=== PATIENT | female | born 1950 | race Caucasian/White ===

== ENCOUNTER → 2016-12-11 | Outpatient (CLI) | payer OTHER | LOC: BMCIMAGING 11:21 | PROVIDERS: ATTEND Internal Medicine | DX: Z13.820 Encounter for screening for osteoporosis (principal); M85.80 Other specified disorders of bone density and structure, unspecified site ==

== ENCOUNTER 2018-05-06 01:30 | Observation (INO) | payer OTHER ==
[2018-05-06] MEDS ORDERED: NS 1,000 ML IV ONE (01:42)
--- NOTE | 2018-05-06 01:42 | EDPHY ---
H & P Stated Complaint: left flank pain Time Seen by Provider: 05/06/18 01:42 HPI/ROS: HPI CHIEF COMPLAINT: Left-sided flank pain. HISTORY OF PRESENT ILLNESS: This is a 67-year-old female, presents emergency room with sudden onset approximately an hour ago left-sided flank pain. Sharp stabbing. Rates pain 6/10 currently. She has associated nausea and vomiting with this. No fever. Pain is rather severe this is what brought her to the emergency room. She denies any chest pain or shortness of breath. Complains of left flank pain. She does report that she had blood in her urine recently and is currently being worked up for this she is due to have an ultrasound this week. Past Medical History: History of uterine cancer, neck cancer, thyroid disease Past Surgical History: Neck surgery, hysterectomy Social History: Denies drugs alcohol tobacco. Family History: Noncontributory ROS REVIEW OF SYSTEMS: 10 Systems were reviewed and negative with the exception of the elements mentioned in the history of present illness. Exam Constitutional nontoxic,, triage nursing summary reviewed, vital signs reviewed , awake/alert. Eyes normal conjunctivae and sclera, EOMI, PERRLA. HENT normal inspection, atraumatic, moist mucus membranes, no epistaxis, neck supple/ no meningismus, no raccoon eyes. Respiratory clear to auscultation bilaterally, normal breath sounds, no respiratory distress, no wheezing. Cardiovascular rate normal, regular rhythm, no murmur, no edema, distal pulses normal. Gastrointestinal soft, non-tender, no rebound, no guarding, normal bowel sounds, no distension, no pulsatile mass. Genitourinary mild tender palpation left CVA. Musculoskeletal no midline vertebral tenderness, full range of motion, no calf swelling, no tenderness of extremities, no meningismus, good pulses, neurovascularly intact. Skin pink, warm, & dry, no rash, skin atraumatic. Neurologic awake, alert and oriented x 3, AAOx3, moves all 4 extremities equally, motor intact, sensory intact, CN II-XII intact, normal cerebellar, normal vision, normal speech. Psychiatric normal mood/affect. Heme/Lymph/Immune no lymphadenopathy. Differential diagnosis includes but is not limited to and in no particular order : Bowel obstruction, appendicitis, gallbladder disease, diverticulitis, colitis , enteritis, perforated viscus, gastritis, GERD, esophagitis, urinary tract infection, pyelonephritis, kidney stones Medical Decision Making: Plan for this patient IV establishment IV fluid bolus IV Zofran 4 mg for nausea, IV Dilaudid 0.5 mg for pain control check UA, basic blood work, CT scan abdomen pelvis without contrast for flank pain. Re-evaluation: CT scan abdomen pelvis without contrast for flank pain shows a large left-sided UPJ stone 8 x 7 x 10. Called to me by Dr. Mead. Patient re-evaluated 2:44 a.m.. Still has ongoing left flank pain. Nausea. Patient very large stone causing obstructive uropathy. Plan for admission for pain control. Observation. Source: Patient - Personal History Current Tetanus/Diphtheria Vaccine: Yes Current Tetanus Diphtheria and Acellular Pertussis (TDAP): Yes Tetanus Vaccine Date: last 10 years - Medical/Surgical History Hx Asthma: No Hx Chronic Respiratory Disease: No Hx Diabetes: No Hx Cardiac Disease: No Hx Renal Disease: No Hx Cirrhosis: No Hx Alcoholism: No Hx HIV/AIDS: No Hx Splenectomy or Spleen Trauma: No Other PMH: kidney stones - Social History Smoking Status: Never smoked Constitutional: Initial Vital Signs Temperature (C) 36.4 C 05/06/18 01:37 Heart Rate 79 05/06/18 01:37 Respiratory Rate 18 05/06/18 01:37 Blood Pressure 136/79 H 05/06/18 01:37 O2 Sat (%) 98 05/06/18 01:37 O2 Delivery Mode Room Air Allergies/Adverse Reactions: No Known Allergies Allergy (Unverified 03/01/11 12:32) Home Medications: Medication Instructions Recorded Levothyroxine [Synthroid 25 mcg 25 mcg PO DAILY06 05/06/18 (*)] Meth/Meblue/Sod Phos/Psal/Hyos 1 each PO QID #20 capsule 05/07/18 [Uribel Capsule] traMADol [Ultram 50 mg (*)] 50 mg PO Q4 #10 tab 05/07/18 Medical Decision Making - Data Points Laboratory Results: Laboratory Results 05/06/18 01:44 05/06/18 01:44 Medications Given: Discontinued Medications Acetaminophen (Tylenol) 650 mg PO Q4HRS PRN PRN Reason: Pain, Mild/Fever, Can Take PO Stop: 11/02/18 02:46 Last Admin: 05/06/18 10:22 Dose: 650 mg Amoxicillin (Amoxicillin) 500 mg PO Q8HRS SAMUEL PRN Reason: Protocol Stop: 06/05/18 13:59 Last Admin: 05/07/18 13:13 Dose: 500 mg Hydromorphone HCl (Dilaudid) 0.5 mg IVP EDNOW ONE Stop: 05/06/18 01:49 Last Admin: 05/06/18 01:54 Dose: 0.5 mg Hydromorphone HCl (Dilaudid) 0.2 - 0.4 mg IVP Q4HRS PRN PRN Reason: Pain, Severe Unable to Take PO Stop: 05/16/18 02:46 Last Admin: 05/06/18 22:22 Dose: 0.3 mg Sodium Chloride (Ns) 1,000 mls @ 0 mls/hr IV EDNOW ONE; Wide Open PRN Reason: Protocol Stop: 05/06/18 01:43 Last Admin: 05/06/18 01:46 Dose: 1,000 mls Sodium Chloride (Ns) 1,000 mls @ 150 mls/hr IV CONT SAMUEL Stop: 11/02/18 02:59 Last Admin: 05/07/18 06:02 Dose: 1,000 mls Levofloxacin/Dextrose (Levaquin 500 Mg (Premix)) 100 mls @ 100 mls/hr IV ONCALL ONE PRN Reason: Protocol Stop: 05/07/18 08:14 Last Admin: 05/07/18 07:30 Dose: 100 mls Lactated Ringer's (Lr) 1,000 mls @ 0 mls/hr IV ONCE ONE PRN Reason: Per Protocol Stop: 05/07/18 06:30 Last Admin: 05/07/18 06:48 Dose: 1,000 mls Iopamidol (Isovue-M 300) Confirm Administered Dose 30 ml .ROUTE .STK-MED ONE Stop: 05/07/18 07:02 Last Admin: 05/07/18 07:30 Dose: 30 ml Iopamidol (Isovue-M 300) Confirm Administered Dose 15 ml .ROUTE .STK-MED ONE Stop: 05/07/18 08:09 Last Admin: 05/07/18 08:19 Dose: 15 ml Ketorolac Tromethamine (Toradol) 15 mg IVP Q6HRS [facility] Stop: 05/11/18 05:59 Last Admin: 05/07/18 12:02 Dose: 15 mg Levothyroxine Sodium (Synthroid) 25 mcg PO DAILY06 [facility] Stop: 11/02/18 12:44 Last Admin: 05/07/18 06:00 Dose: 25 mcg Lidocaine (Uroject Lidocaine 2% Jelly) Confirm Administered Dose 20 ml .ROUTE .STK-MED ONE Stop: 05/07/18 07:01 Last Admin: 05/07/18 08:44 Dose: 0.1 ml Lidocaine (Uroject Lidocaine 2% Jelly) Confirm Administered Dose 20 ml .ROUTE .STK-MED [facility] Stop: 05/07/18 08:43 Last Admin: 05/07/18 08:45 Dose: 20 ml Ondansetron HCl (Zofran) 4 mg IVP EDNOW ONE Stop: 05/06/18 01:49 Last Admin: 05/06/18 01:54 Dose: 4 mg Ondansetron HCl (Zofran) 4 mg IVP Q4HRS PRN PRN Reason: Nausea/Vomiting, Can't Take PO Stop: 11/02/18 02:46 Last Admin: 05/07/18 12:10 Dose: 4 mg Phenazopyridine HCl (Pyridium) 200 mg PO TID [facility] Stop: 11/03/18 09:29 Last Admin: 05/07/18 16:11 Dose: Not Given Tamsulosin HCl (Flomax) 0.4 mg PO DAILY [facility] Stop: 11/02/18 02:59 Last Admin: 05/07/18 13:13 Dose: 0.4 mg Departure - Departure Disposition: [facility] Acute Clinical Impression: Kidney stone on left side, Obstructive uropathy Condition: Fair
[2018-05-06] MEDS ORDERED: ONDANSETRON 4 MG/2 ML VIAL IVP ONE (01:48)
[2018-05-06] MEDS ORDERED: HYDROmorphONE/DILAUDID 2 MG/ML INJ IVP ONE (01:48)
[2018-05-06 01:58] LABS: PLATELET COUNT 215 10^3/uL (150-400)
[2018-05-06] MEDS ORDERED: ONDANSETRON DISINTEGRATING 4 MG TAB PO PRN (02:47)
[2018-05-06] MEDS ORDERED: KETOROLAC 15 MG/1 ML SDV ONE (03:15)
[2018-05-06] MEDS: KETOROLAC 15 MG/1 ML SDV IVP SCH ×4 (03:16→23:48)
--- NOTE | 2018-05-06 03:16 | PDGENHP ---
History and Physical - Chief Complaint L flank pain - History of Present Illness 67 yo F w/ minimal PMhx presents with L flank pain. She had acute onset of severe L flank pain this evening. She denies fever, chills, or dysuria. She has had similar, but less severe pain on the L side with a prior kidney stone. CT scan in the ED confirms large R sided kidney stone. There are no signs or symptoms of infection currently. She is being admitted for pain control and possible surgical management of large ureteral stone. Case discussed with ED physician Dr. Garland; records reviewed and summarized above. 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 - Family History Additional family history: Denies family hx of kidney stones - Social History Smoking Status: Never smoked Review of Systems Review of Systems: ROS: 10pt was reviewed & negative except for what was stated in HPI & below Physical Exam Physical Exam: Temp Pulse Resp BP Pulse Ox 36.4 C 79 18 136/79 H 98 05/06/18 01:37 05/06/18 01:37 05/06/18 01:37 05/06/18 01:37 05/06/18 01:37 Constitutional: appears nourished, uncomfortable Eyes: PERRL, EOMI Ears, Nose, Mouth, Throat: moist mucous membranes, no oral mucosal ulcers Cardiovascular: regular rate and rhythym, no murmur, rub, or gallop Respiratory: no respiratory distress, clear to auscultation Gastrointestinal: normoactive bowel sounds, tenderness (L flank) Skin: warm, normal color Musculoskeletal: full muscle strength, no muscle tenderness Neurologic: AAOx3, CN II-XII Intact Psychiatric: interacting appropriately, not anxious Lab Data & Imaging Review 05/06/18 01:44 05/06/18 01:44 WBC 7.18 10^3/uL (3.80-9.50) 05/06/18 01:44 RBC 4.04 10^6/uL (4.18-5.33) L 05/06/18 01:44 Hgb 12.6 g/dL (12.6-16.3) 05/06/18 01:44 Hct 36.9 % (38.0-47.0) L 05/06/18 01:44 MCV 91.3 fL (81.5-99.8) 05/06/18 01:44 MCH 31.2 pg (27.9-34.1) 05/06/18 01:44 MCHC 34.1 g/dL (32.4-36.7) 05/06/18 01:44 RDW 12.5 % (11.5-15.2) 05/06/18 01:44 Plt Count 215 10^3/uL (150-400) 05/06/18 01:44 MPV 9.8 fL (8.7-11.7) 05/06/18 01:44 Neut % (Auto) 60.2 % (39.3-74.2) 05/06/18 01:44 Lymph % (Auto) 28.8 % (15.0-45.0) 05/06/18 01:44 [place]aca % (Auto) 9.2 % (4.5-13.0) 05/06/18 01:44 Eos % (Auto) 1.3 % (0.6-7.6) 05/06/18 01:44 Baso % (Auto) 0.4 % (0.3-1.7) 05/06/18 01:44 Nucleat RBC Rel Count 0.0 % (0.0-0.2) 05/06/18 01:44 Absolute Neuts (auto) 4.32 10^3/uL (1.70-6.50) 05/06/18 01:44 Absolute Lymphs (auto) 2.07 10^3/uL (1.00-3.00) 05/06/18 01:44 Absolute Monos (auto) 0.66 10^3/uL (0.30-0.80) 05/06/18 01:44 Absolute Eos (auto) 0.09 10^3/uL (0.03-0.40) 05/06/18 01:44 Absolute Basos (auto) 0.03 10^3/uL (0.02-0.10) 05/06/18 01:44 Absolute Nucleated RBC 0.00 10^3/uL (0-0.01) 05/06/18 01:44 Immature Gran % 0.1 % (0.0-1.1) 05/06/18 01:44 Immature Gran # 0.01 10^3/uL (0.00-0.10) 05/06/18 01:44 Sodium 142 mEq/L (135-145) 05/06/18 01:44 Potassium 3.8 mEq/L (3.3-5.0) 05/06/18 01:44 Chloride 106 mEq/L (97-110) 05/06/18 01:44 Carbon Dioxide 29 mEq/l (22-31) 05/06/18 01:44 Anion Gap 7 mEq/L (6-14) 05/06/18 01:44 BUN 24 mg/dL (7-23) H 05/06/18 01:44 Creatinine 0.9 mg/dL (0.6-1.0) 05/06/18 01:44 Estimated GFR > 60 05/06/18 01:44 Glucose 125 mg/dL (70-100) H 05/06/18 01:44 Calcium 9.4 mg/dL (8.5-10.4) 05/06/18 01:44 Total Bilirubin 0.3 mg/dL (0.1-1.4) 05/06/18 01:44 Conjugated Bilirubin 0.2 mg/dL (0.0-0.5) 05/06/18 01:44 Unconjugated Bilirubin 0.1 mg/dL (0.0-1.1) 05/06/18 01:44 AST 33 IU/L (14-46) 05/06/18 01:44 ALT 35 IU/L (9-52) 05/06/18 01:44 Alkaline Phosphatase 59 IU/L (38-126) 05/06/18 01:44 Total Protein 6.5 g/dL (6.3-8.2) 05/06/18 01:44 Albumin 4.0 g/dL (3.5-5.0) 05/06/18 01:44 Lipase 190 IU/L (23-300) 05/06/18 01:44 Imaging Review: CT A/P Prelim: large prox L ureteral stone [id number]. called Rickie Assessment & Plan Assessment: 67 yo F w/ minimal PMHx presents with L sided urolithiasis. Plan: 1. L urolithiasis - Acute onset pain this evening; large proximal L ureteral stone [id number] noted on CT (personally reviewed/interpreted). Noting size, stone may not spontaneously pass. - Admit for observation - Continue aggressive hydration - Pain control with Dilaudid, Toradol PRN - Tamsulosin 0.4 mg qD - Will discuss case with urology service Diet - NPO Code - Full Ppx - SCDs Dispo - Admit under observation status
[2018-05-06] MEDS: TAMSULOSIN HCL 0.4 MG CAP PO SCH ×2 (03:18→10:22)
[2018-05-06] MEDS: ACETAMINOPHEN 325 MG TAB PO PRN ×2 (05:03→10:22)
[2018-05-06] MEDS: NS 1,000 ML IV SCH ×3 (10:25→23:44)
[2018-05-06] MEDS: ONDANSETRON 4 MG/2 ML VIAL IVP PRN (11:40)
--- NOTE | 2018-05-06 11:46 | SOAPPROG ---
CHRISTOPHE Progress Note Assessment/Plan: Assessment: Symptomatic 6x5x9 mm long left proximal ureteral calculus. Plan: 1. Continue medical management today. 2. If she does not spontaneously pass her stone, we will proceed with intraoperative left ureteroscopy and ureteral stent placement tomorrow. Objective: Vital Signs Temp Pulse Resp BP Pulse Ox 36.9 C 82 16 117/74 90 L 05/06/18 11:16 05/06/18 11:16 05/06/18 11:16 05/06/18 11:16 05/06/18 11:16 05/05/18 05/06/18 05/07/18 05:59 05:59 05:59 Intake Total 1355 Output Total 200 Balance 1155 ICD10 Worksheet Patient Problems: Problems Problem Status Onset Kidney stone on left side Acute Obstructive uropathy Acute
--- NOTE | 2018-05-06 12:56 | HOSPPROG ---
Hospitalist Progress Note Assessment/Plan: * Kidney stone with hydronephrosis - 6 x 7.7 x 9 mm -per Dr. Burk - supportive care today to see if she passes the stone -if no passage, then to OR tomorrow -pain currently controlled on IV toradol -continue Flomax * h/o tonsillar cancer s/p neck dissection * Hypothyroid -continue synthroid Subjective: Pain controlled when she gets IV toradol Objective: Vital Signs Temp Pulse Resp BP Pulse Ox 36.9 C 82 16 117/74 90 L 05/06/18 11:16 05/06/18 11:16 05/06/18 11:16 05/06/18 11:16 05/06/18 11:16 05/05/18 05/06/18 05/07/18 05:59 05:59 05:59 Intake Total 1355 Output Total [address] abd - kidney stone 9mm largest diameter Laboratory Tests 05/06/18 05/06/18 01:44 01:44 WBC 7.18 Creatinine 0.9 - Physical Exam Constitutional: no apparent distress, appears nourished, not in pain Cardiovascular: regular rate and rhythym, no murmur, rub, or gallop Respiratory: no respiratory distress, no rales or rhonchi, clear to auscultation Gastrointestinal: normoactive bowel sounds, soft, non-tender abdomen, no palpable masses Skin: no rashes or abrasions, no fluctuance, no induration Neurologic: AAOx3, sensation intact bilaterally Psychiatric: interacting appropriately, not anxious, not encephalopathic, thought process linear ICD10 Worksheet Patient Problems: Problems Problem Status Onset Kidney stone on left side Acute Obstructive uropathy Acute
[2018-05-06] MEDS: LEVOTHYROXINE 25 MCG TAB PO SCH (13:40)
[2018-05-06] MEDS: HYDROmorphONE/DILAUDID 2 MG/ML INJ IVP PRN ×2 (14:30→22:22)
--- NOTE | 2018-05-06 16:06 | ASMTCMCOM ---
CM Note CM Note Notes: Patient plan of care reviewed in rounds. 67 year old female admitted via ED for c/o serve left flank pain found to have fairly large kidney stone on CT. Seen by urology early am. May have intervention to address stone removal/ management. NO current needs identified. CM available should needs arise.Likely independent at ca. Plan: TBD Date Signed: 05/06/2018 04:05 PM Electronically Signed By:Ally Fox RN
[2018-05-07] MEDS: KETOROLAC 15 MG/1 ML SDV IVP SCH ×2 (05:55→12:02)
[2018-05-07] MEDS: LEVOTHYROXINE 25 MCG TAB PO SCH (06:00)
[2018-05-07] MEDS: NS 1,000 ML IV SCH (06:02)
[2018-05-07] MEDS ORDERED: LR 1,000 ML IV ONE (06:29)
--- NOTE | 2018-05-07 06:47 | PDANEPAE ---
ANE Past Medical History - Cardiovascular History Hx Hypertension: No Hx Arrhythmias: No Hx Chest Pain: No Hx Coronary Artery / Peripheral Vascular Disease: No Hx CHF / Valvular Disease: No Hx Palpitations: No - Pulmonary History Hx COPD: No Hx Asthma/Reactive Airway Disease: No Hx Recent Upper Respiratory Infection: No Hx Oxygen in Use at Home: No Hx Sleep Apnea: No Sleep Apnea Screening Result - Last Documented: Negative - Endocrine History Hx Diabetes: No Hypothyroid: Yes Hyperthyroid: No Obesity: no - Renal History Renal History Comment: Left kidney stone - Surgical History Prior Surgeries: hysterectomy ANE Review of Systems Review of Systems: - Exercise capacity Exercise capacity: >=4 METS ANE Patient History - Allergies Allergies/Adverse Reactions: No Known Allergies Allergy (Unverified 03/01/11 12:32) - Home Medications Home medications: home medication list seen and reviewed Home Medications: Levothyroxine [Synthroid 25 mcg (*)] 25 mcg PO DAILY06 05/06/18 [Last Taken ] - NPO status NPO Status: no food or drink >8 hours NPO Since - Liquids (Date): 05/07/18 NPO Since - Liquids (Time): 05:00 NPO Since - Solids (Date): 05/05/18 NPO Since - Solids (Time): 12:00 - Anes Hx Anes Hx: no prior problems - Smoking Hx Smoking Status: Never smoked ANE Labs/Vital Signs - Labs Result Diagrams: 05/06/18 01:44 05/06/18 01:44 - Vital Signs Vital Signs: reviewed preoperatively; see RN documention for details Blood Pressure: 137/81 Heart Rate: 77 Respiratory Rate: 18 O2 Sat (%): 93 Height: 165.1 cm Weight: 63.503 kg ANE Physical Exam - Airway Mallampati Score: Class 1 Mouth exam: normal dental/mouth exam - Pulmonary Pulmonary: no respiratory distress, clear to auscultation - Cardiovascular Cardiovascular: regular rate and rhythym - ASA Status ASA Status: II ANE Anesthesia Plan Anesthesia Plan: GA w LMA
[2018-05-07] MEDS ORDERED: LIDOCAINE 2% JELLY 20 ML (UROJECT) ONE ×2 (07:00→08:42)
[2018-05-07] MEDS ORDERED: IOPAMIDOL (ISOVUE-M 300) 15 ML VIAL ONE ×2 (07:01→08:08)
[2018-05-07] MEDS ORDERED: fentaNYL 100 MCG/2 ML INJ ONE (07:05)
[2018-05-07] MEDS ORDERED: PROPOFOL 200 MG/20 ML VIAL ONE ×2 (07:06→07:51)
[2018-05-07] MEDS ORDERED: levOFLOXACIN 500 MG/DEXTROSE 100 ML IV ONE (07:15)
--- NOTE | 2018-05-07 07:29 | POSTOPPROG ---
Post Op Note Date of Operation: 05/07/18 Surgeon: Chhaya Burk (# [id number]) Anesthesia: GET(General Endotracheal) Pre-op Diagnosis: Left proximal ureteral calculus Post-op Diagnosis: Left proximal ureteral calculus & left nephrolithiasis Procedure: Cysto, left RGP, left ureterscopy w/ holmium laser lithotripsy, stent plcmt Findings: See op note Inf/Abcess present in the surg proc area at time of surgery?: No EBL: Minimal Complications: None Drains: Other (4.7 Fr. x 24 cm left ureteral stent) Specimen(s): None Text Box - Additional Text Additional Text: She should be ready for discharge from my standpoint later today, pending hospitalist's assessment. She needs to FU in my office in 2-3 weeks for ureteral stent removal.
[2018-05-07] MEDS ORDERED: oxyCODONE IR 5 MG TAB PO PRN (08:12)
[2018-05-07] MEDS ORDERED: PROMETHAZINE HCL 25 MG/ML INJ IVP PRN (08:12)
[2018-05-07] MEDS ORDERED: METOCLOPRAMIDE 10 MG/2 ML VIAL IVP PRN (08:12)
[2018-05-07] MEDS ORDERED: LR 500 ML IV PRN (08:12)
[2018-05-07] MEDS ORDERED: ACETAMINOPHEN 500 MG TAB PO PRN (08:12)
[2018-05-07] MEDS ORDERED: NALOXONE HCL 0.4 MG/ML INJ IVP PRN (08:12)
[2018-05-07] MEDS ORDERED: HYDROmorphONE/DILAUDID 2 MG/ML INJ IVP PRN (08:12)
[2018-05-07] MEDS ORDERED: MEPERIDINE 25 MG/0.5 ML AMP IVP PRN (08:12)
[2018-05-07] MEDS ORDERED: fentaNYL 100 MCG/2 ML INJ IVP PRN (08:12)
[2018-05-07] MEDS ORDERED: LABETALOL HCL 5 MG/ML 20 ML MDV IVP PRN (08:12)
[2018-05-07] MEDS ORDERED: ONDANSETRON 4 MG/2 ML VIAL IVP PRN (08:12)
[2018-05-07] MEDS ORDERED: DEXAMETHASONE 4 MG/ML VIAL ONE (08:39)
[2018-05-07] MEDS ORDERED: ePHEDrine SULFATE 25 MG/5 ML SYR ONE (08:39)
[2018-05-07] MEDS ORDERED: PHENYLEPHRINE HCL 100 MCG/ML SYR ONE (08:39)
--- NOTE | 2018-05-07 09:08 | GCON ---
UROLOGY CONSULTATION NOTE DATE OF CONSULTATION: 05/06/2018 REFERRING PHYSICIAN: Hospitalist Service REASON FOR CONSULTATION: Left ureteral calculus. HISTORY: This is a 67-year-old woman who was in her otherwise state of good health when she started experiencing acute onset of severe left-sided flank pain the evening prior to admission. There was s ome associated nausea. She presented to the emergency room as a result of her symptoms. A CT scan w as performed which revealed a nephroureterolithiasis. The patient was admitted for further managemen t in light of her refractory symptoms. PAST MEDICAL HISTORY: Hypothyroidism, remote history of tonsillar cancer. Patient did have a recent history of gross painless hematuria prior to onset of renal colic. PAST SURGICAL HISTORY: Includes hysterectomy and right radical neck dissection in for tonsilla r cancer. ADMISSION MEDICATIONS: Levothyroxine. MEDICAL ALLERGIES: None known. FAMILY HISTORY: Noncontributory. Specifically, no history of kidney stones to her knowledge. SOCIAL HISTORY: The patient is and lives in the [place] area. She denies use of tobacco pro ducts. 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 REVIEW OF SYSTEMS: Unremarkable, other than mentioned in the HPI and Past Medical History. PHYSICAL EXAM: GENERAL: Well-developed, well-nourished white female lying supine in bed, in no acut e distress presently. VITAL SIGNS: Blood pressure 127/75, pulse 82, respiratory rate 16, oxygen sat uration 95% on 1 L nasal cannula. Temperature 37.1 Celsius. Height 165 cm, weight 63 kg, BMI 23. H EENT: Normocephalic, atraumatic. NECK: Normal appearance with no deformities. CHEST: Unlabored r espiratory pattern. HEART: Regular rate. ABDOMEN: Soft without palpable masses. No obvious organ omegaly. BACK: No CVA tenderness currently. EXTREMITIES: Warm without cyanosis, clubbing, or sign ificant edema. VASCULAR: Normal femoral pulses bilaterally. NEUROLOGIC: She is alert and oriented . She answers all questions appropriately with normal mood and affect. LABORATORY STUDIES: 05/06/2018, noncontrast abdominopelvic CT scan: Upon my review, notable for mod erate left hydronephrosis and hydroureter down to a 6 x 5 x 9 mm long ureteral calculus at L4. CT sc out film reveals an 8 x 4 mm calculus on the left side at L4. There are at least 4 left renal calcul i measuring up to 5 x 4 mm in the left upper pole, as well as a 2 mm right lower pole calculus. The patient is also noted to have severe lumbar scoliosis. Admission CBC is unremarkable. Admission evelyn charli panel is normal with creatinine of 0.9, calcium 9.4. Admission urinalysis notable for 50-182 red blood cells, 15-25 white blood cells, and nitrite and leukocyte negative. IMPRESSION: 1. Symptomatic left proximal ureteral calculus. 2. Asymptomatic bilateral nephrolithiasis. 3. Recent history of gross painless hematuria: Most likely secondary to left ureteral calculus. DISCUSSION: I had an extensive discussion with the patient this evening regarding her ureteral calcu lilian and management options. For calculi that do not pass spontaneously, ureteroscopy is the preferre d surgical management option in this setting. The rationale for this procedure, technical aspects in volved, expected benefits, and potential risks/complications (including but not limited to inability to remove existing calculus, inability to find calculus, inability to place a stent, urinary tract in fection, hematuria, and other side effects related to indwelling ureteral stent) were all discussed i n detail. PLAN: 1. Continue medical management this evening. 2. Proceed with intraoperative ureteroscopy and calculus management tomorrow morning if she does not spontaneously pass the calculus in the meantime. Thank you for this consultation. /[id number]/MODL
--- NOTE | 2018-05-07 10:49 | GOP ---
DATE OF OPERATION: 05/07/2018 SURGEON: Chhaya Burk MD ANESTHESIA: General endotracheal. PREOPERATIVE DIAGNOSIS: 1. Symptomatic left proximal ureteral calculus. 2. Left nephrolithiasis. POSTOPERATIVE DIAGNOSIS: 1. Symptomatic left proximal ureteral calculus. 2. Left nephrolithiasis. PROCEDURE PERFORMED: 1. Cystourethroscopy, left retrograde pyelography. 2. Left ureteroscopy and ureterorenoscopy with holmium laser calculus lithotripsy. 3. Left ureteral stent placement (4.7-Welsh by 24 cm). FINDINGS: Sizable left proximal ureteral calculus with another dominant left upper pole renal calcul us. SPECIMENS: None. ESTIMATED BLOOD LOSS: Minimal. INDICATIONS: This woman was admitted with symptoms related to a left proximal ureteral calculus, whi ch she has been unable to pass spontaneously. It was recommended that she undergo intraoperative man agement. The indications for the procedures, as well as potential risks and complications were discu ssed with the patient preoperatively. She appeared to understand, her questions were answered, and s he wished to proceed. Written informed surgical consent was thereafter obtained. DESCRIPTION OF PROCEDURE: The patient was brought to the operating room and administered general end otracheal anesthesia. She was carefully placed in the dorsal lithotomy position on the cystoscopic t able. The genital area was sterilely prepped with Betadine scrub and paint, and then draped in usual sterile fashion. Cystoscopy was . Urethra and bladder were unremarkable. Ureteral orifices were normal in regard to shape and position along the trigone. A 5-Welsh open-ended ureteral catheter was used to perform retrograde pyelography on the left side. Under fluoroscopic guidance, there appeared to be a filling defect just distal to the ureteropelvic junction with [id number] proximal hydronephros is and hydroureter. There was also significant left proximal ureteral medial deviation as a result o f severe scoliosis. I then advanced a 0.035 inch hydrophilic guidewire through the ureteral catheter into the renal colle cting system as noted fluoroscopically. The entire length of the ureter distal to the perceived loca tion of the calculus was dilated with 2 separate inflations and deflations of a 10 cm balloon by main taining a pressure of 16 atmospheres for about 4 minutes on each occasion. The balloon dilator and c ystoscope were then removed while keeping the guidewire in place. I initially started with semi-rigi d ureteroscopy. The ureteroscope was advanced to the ureteropelvic junction and no calculus was seen . Likely the calculus that was in the very proximal aspect of the ureter had migrated into the renal collecting system. Therefore, decided to proceed with flexible ureterorenoscopy. A 0.035 inch Amplatz superstiff guidewire was advanced through the ureteroscope and into the renal co llecting system as noted fluoroscopically. The ureteroscope was removed while keeping both guidewire s in place. Under fluoroscopic guidance, a 35 cm hydrophilic ureteral access sheath was advanced ove r the Amplatz guidewire until it was advanced to a point just distal to the ureteropelvic junction. The inner obturator and Amplatz guidewire were removed while keeping the secondary guidewire and oute r portion of the access sheath in place. The flexible ureteroscope was then brought onto the field a nd used to perform a renoscopy. There were 2 calculi seen within an upper pole calyx, 1 that appeare d to correspond with the size of the calculus seen in the proximal ureter on the preoperative imaging and another calculus that was probably a dominant right upper pole calculus seen on preoperative CT as well. A 200 micron holmium laser fiber was used to fragment both of these calculi into minute fra gments. These were flushed out of the upper pole with normal saline and sterile water through the ur eteroscope. The ureteroscope and ureteral access sheath were then removed in tandem. There was no e vidence of excessive trauma appreciated within the ureteral mucosa. The cystoscope was back-loaded o jacque the guidewire and a 4.7-Welsh by 24 cm hydrophilic ureteral stent was advanced over the guidewir e until it was properly positioned as seen fluoroscopically in the kidney and cystoscopically in the bladder. The bladder was then drained of all return, which was relatively clear. The instruments we re removed and 20 cc of 2% lidocaine injected transurethrally for postoperative analgesic purposes. The patient was then awakened, extubated, transferred to her bed, then taken to the recovery room. S he tolerated the procedure well overall. COMPLICATIONS: None. DISPOSITION: She was transferred to the recovery room in stable condition. She can be discharged fr om my standpoint whenever deemed appropriate by the hospitalist service with instructions to follow mayra casas in my office in approximately 3 weeks for ureteral stent removal. /[id number]/MODL
[2018-05-07] MEDS: ONDANSETRON 4 MG/2 ML VIAL IVP PRN (12:10)
--- NOTE | 2018-05-07 12:15 | POSTANESTH ---
Post Anesthetic Evaluation Respiratory Status: Normal, Stable Level of Consciousness/Mental Status: Can Participate in Eval Pain Control: Adequate, Prn Tx Ordered Nausea/Vomiting Control: Adequate, Prn Tx Ordered Complications Possibly Related to Anesthesia: None Noted
[2018-05-07] MEDS: PHENAZOPYRIDINE HCL 200 MG TAB PO SCH ×2 (13:13→16:11)
[2018-05-07] MEDS: TAMSULOSIN HCL 0.4 MG CAP PO SCH (13:13)
--- NOTE | 2018-05-07 15:00 | ASMTLACE ---
JESSE Length of stay for Answers: 1 day current admission Comorbidities - select Answers: Other Notes: Thyroid disease; Hx of all that apply cancer # of Emergency department Answers: 1-2 visits in the last 6 months Score: 3 Date Signed: 05/07/2018 03:00 PM Electronically Signed By:Ally Fox RN
--- NOTE | 2018-05-07 15:00 | ASDISCHSUM ---
Discharge Information Plan Status:Home with No Needs Medically Cleared to Leave:05/06/2018 Discharge Date:05/06/2018 CM D/C Disposition:Home, Routine, Self-Care ADT D/C Disposition:Home, Routine, Self-Care Projected Discharge Date:05/06/2018 Transportation at D/C: Discharge Delay Reason: Follow-Up Date:05/06/2018 Discharge Slot: Final Diagnosis: Placement Information Patient Contact Information Contact Name:MARIANN Relationship: Address:[address] Work Phone: City:[email or web address] Alternate Phone: [facility]/Zip Code:[place] [address] Email: Financial Information Financial Class:Medicare Advantage Plans Primary Plan Desc:[facility] ADV[employer]AGE PLANS Primary Plan Number:[id number] Secondary Plan Desc: Secondary Plan Number: Assessment Information [facility] CM Progress Note CM Note CM Note Notes: Patient plan of care reviewed in rounds. 67 year old female admitted via ED for c/o serve left flank pain found to have fairly large kidney stone on CT. Seen by urology early am. May have intervention to address stone removal/ management. NO current needs identified. CM available should needs arise.Likely independent at ne. Plan: TBD Date Signed: 05/06/2018 04:05 PM Electronically Signed By:Ally Fox RN [facility] CM Progress Note CM Note CM Note Notes: Medically cleared for discharge to home. No needs identified at this time. Plan: Home with family support. Date Signed: 05/07/2018 02:59 PM Electronically Signed By:Ally Fox RN Intervention Information
[2018-05-07 16:39] VITALS: BP 124/74
--- NOTE | 2018-05-07 17:21 | GDS ---
DISCHARGE DIAGNOSES: 1. Symptomatic left proximal ureteral calculus status post ureteral stent. 2. Hydronephrosis. 3. History of tonsillar cancer status post neck dissection. 4. Hypothyroidism. HISTORY: The patient is a 67-year-old female, who presented with flank pain and was found to have a sizable kidney stone with hydronephrosis 9 mm in greatest diameter. Dr. Burk was consulted. She f luis a conservative therapy. He brought her to surgery and had a stent placed. She is doing well pos t surgery and is okay to discharge home. DISCHARGE MEDICATIONS: Please see computer record for full detailed list. New medications: 1. Uribel 1 tablet p.o. 4 times a day. 2. Ultram 50 mg p.o. q.4 hours as needed. ADDITIONAL DISCHARGE INSTRUCTIONS: Follow up with Dr. Burk in 3 weeks for stent removal. Patient seen and examined by me on day of discharge. /[id number]/MODL
== END 2018-05-07 17:20 | disposition home or self-care (01) ==
LOC: F1N 03:35
PROVIDERS: ADMIT Student in an Organized Health Care Education/Training Program; ATTEND Student in an Organized Health Care Education/Training Program
DX: N20.2 Calculus of kidney with calculus of ureter (principal); N13.30 Unspecified hydronephrosis; N13.4 Hydroureter; E03.9 Hypothyroidism, unspecified; M41.9 Scoliosis, unspecified; Z85.818 Personal history of malignant neoplasm of other sites of lip, oral cavity, and pharynx
CPT/HCPCS: 52356; 74176; 76001; 96361; 96374; 96375; 96376; 99285; C1726; C1758; C1769; C1894; C2625; G0378; J1100; J1170; J1885; J1956; J2370; J2405; J2704; J3010; Q9967

== ENCOUNTER → 2018-07-10 | Outpatient (CLI) | payer OTHER | LOC: FIMAGING 10:24 ==

== ENCOUNTER → 2018-07-10 | Outpatient (CLI) | payer OTHER | LOC: FIMAGING 10:28 | PROVIDERS: ATTEND Specialist | DX: N20.0 Calculus of kidney (principal); M41.9 Scoliosis, unspecified ==

== ENCOUNTER → 2018-10-25 | Outpatient (CLI) | payer OTHER | LOC: FIMAGING 09:18 | PROVIDERS: ATTEND Internal Medicine | DX: R10.13 Epigastric pain (principal); R50.9 Fever, unspecified ==